=== PATIENT | male | born 1955 | race Caucasian/White ===

== ENCOUNTER → 2018-10-26 | Outpatient (CLI) | payer OTHER ==
--- NOTE | 2018-10-26 15:57 | PCVCIMAG ---
EXAM: NONINVASIVE ARTERIAL EXAMINATION OF BOTH LOWER EXTREMITIES INCLUDING PRE AND POST EXERCISE PRESSURE MEASUREMENTS AND DOPPLER WAVEFORMS INDICATION: Peripheral Arterial Disease. Leg pain. FINDINGS: Right Brachial: 162 mm Hg. Right Dorsalis Pedis: 203 mm Hg. Right Posterior Tibial: 199 mm Hg. Right ALEXIS = 1.25. Left Brachial: 149 mm Hg. Left Dorsalis Pedis: 191 mm Hg. Left Posterior Tibial: 206 mm Hg. Left ALEXIS = 1.27. Post Exercise: Right Brachial 165 mm Hg. Right Dorsalis Pedis: 193 mm Hg. Left Posterior Tibial: 220 mm Hg. Right ALEXIS = 1.17. Left ALEXIS = 1.33. IMPRESSION: No resting ischemia in the right lower extremity. No exercise induced ischemia in the right lower extremity. No resting ischemia in the left lower extremity. No exercise induced ischemia in the left lower extremity. If clinical suspicion for performed arterial disease is high further evaluation with arterial duplex of the legs may be helpful. LOC:[id number]
--- NOTE | 2018-10-26 17:03 | PCVCIMAG ---
APPROVED REPORT Study performed: 10/26/2018 14:19:20 Exam: Stress Echocardiogram Indication: Hyperlipidemia, Hypertension Patient Location: Echo lab Stress Nurse: Kaylyn Oquendo RN Status: routine Ht: 5 ft 11 in HR: 78 bpm BP: 150/100 mmHg Rhythm: NSR Procedure The patient underwent an Exercise Stress Test using the Freddie Protocol. Blood pressure, heart rate, and EKG were monitored. An Echocardiogram was performed by electronic warfare technician in four stages in quad fashion. At peak stress, four selected images were obtained and placed side by side with resting images for comparison. Stress Test Details Stress Test: Exercise stress testing was performed using a Freddie protocol. HR Resting HR: 78 bpmMax Heart Rate (APMHR): 158 bpm Max HR Achieved: 146 bpmTarget HR (85% APMHR): 134 bpm % of APMHR: 92 Recovery HR: 97 bpm HR response to stress: Normal HR response to stress BP Resting BP: 150/100 mmHg Max BP: 200/100 mmHg Recovery BP: 146/86 mmHg BP response to stress: Normal blood pressure response to stress. ECG Resting ECG: Sinus Rhythm Stress ECG: Sinus Rhythm Recovery ECG: Sinus Rhythm Clinical Reason for Termination: Maximal effort Exercise duration: 9 min 29 sec Highest Stage Achieved: Stage 4: 4.2 mph at 16% grade. Exercise capacity: 11.60 METs Overall Exercise Capacity for Age: Normal Pre-Stress Echo The resting Echocardiogram showed normal left ventricular contractility with an estimated Ejection Fraction of about 55-60%. Normal wall motion in all segments on baseline images. Post-Stress Echo The stress Echocardiogram showed normal left ventricular contractility with an estimated Ejection Fraction of about 60-65%. Normal augmentation of wall motion in all segments on post stress images. Clinical No clinical or ECG evidence for ischemia. Conclusion Clinical Response: Non-ischemic Exercise Capacity: Average Stress ECG Response: Non-ischemic Stress Echo Images: Non-ischemic The left ventricle is normal in size and wall thickness in both the rest and stress images. Other Information Study Quality: Technically Difficult <Conclusion> The left ventricle is normal in size and wall thickness in both the rest and stress images.
== END | disposition home or self-care (01) ==
LOC: PCVCIMAG 13:09
PROVIDERS: ATTEND Family Medicine
DX: I73.9 Peripheral vascular disease, unspecified (principal); R07.9 Chest pain, unspecified; R06.09 Other forms of dyspnea; E78.5 Hyperlipidemia, unspecified; I10 Essential (primary) hypertension; R09.89 Other specified symptoms and signs involving the circulatory and respiratory systems; I15.9 Secondary hypertension, unspecified; N20.0 Calculus of kidney
CPT/HCPCS: 93325; 93351; 93924